=== PATIENT | female | born 1940 | race Caucasian/White ===

== ENCOUNTER 2024-11-15 13:48 | Emergency (ER) | payer MEDICARE, MEDICAID, SELFPAY ==
[2024-11-15 13:53] VITALS: BP 168/133; PULSE 84; RESP 16; TEMP 36.7; O2SAT 95; BMI 34.9
--- NOTE | 2024-11-15 13:53 | CTR_ITS ---
PROCEDURE INFORMATION: Exam: CT Pelvis Without Contrast, Skeleton Exam date and time: 11/15/2024 2:04 PM Age: 84 years old Clinical indication: Injury or trauma; Fall; Blunt trauma (contusions or hematomas); Bilateral; Pelvic region TECHNIQUE: Imaging protocol: Computed tomography of the pelvis without contrast. Exam focused on the skeleton. Radiation optimization: All CT scans at this facility use at least one of these dose optimization techniques: automated exposure control; mA and/or kV adjustment per patient size (includes targeted exams where dose is matched to clinical indication); or iterative reconstruction. COMPARISON: No relevant prior studies available. RADIATION DOSE METRICS: Total DLP (mGy-cm): 724.49 FINDINGS: Bones/joints: No acute fracture or dislocation. Cystic and sclerotic changes in both femoral heads, right slightly greater than left, are consistent with [id number] bilateral hip arthrosis. Normal sacroiliac joints. Degenerative changes in the spine. Moderate osteopenia. Soft tissues: Unremarkable. CT/CT pelvis [facility] [id number] IMPRESSION: No acute findings.
--- NOTE | 2024-11-15 13:53 | CTR_ITS ---
PROCEDURE INFORMATION: Exam: CT Head Without Contrast Exam date and time: 11/15/2024 2:01 PM Age: 84 years old Clinical indication: Injury or trauma; Fall; Blunt trauma (contusions or hematomas) TECHNIQUE: Imaging protocol: Computed tomography of the head without contrast. Radiation optimization: All CT scans at this facility use at least one of these dose optimization techniques: automated exposure control; mA and/or kV adjustment per patient size (includes targeted exams where dose is matched to clinical indication); or iterative reconstruction. COMPARISON: No relevant prior studies available. RADIATION DOSE METRICS: Total DLP (mGy-cm): 1066.98 FINDINGS: Brain: No intraparenchymal hemorrhage. No subdural or epidural hematoma or fluid collection. Confluent and scattered areas of decreased density are present within the periventricular and subcortical deep white matter. These changes are nonspecific and more in keeping with areas of chronic microvascular ischemic change. No evidence of a large territorial infarct. There is no large mass or mass effect. Cerebral ventricles: Mild prominence of the ventricular and sulcal pattern. There is prominence of the extra-axial CSF space. Findings more compatible with global volume loss. Paranasal sinuses: The visualized portion of the paranasal sinuses are clear. Mastoid air cells: The mastoid air cells are clear. Bones: The calvarium is intact. No depressed or displaced skull fracture. No suspicious bone lesion. Soft tissues: Overlying soft tissues appear unremarkable. Vasculature: Atherosclerotic plaque along the intracranial segment of the right and left internal carotid artery. CT/CT head wo con* [id number] IMPRESSION: No acute findings within the brain.
--- NOTE | 2024-11-15 13:56 | W.ED.FALL ---
HPI - Fall General: Chief Complaint: Fall Stated Complaint: buttock pain s/p fall Time Seen by Provider: 11/15/24 13:50 Source: patient Mode of arrival: ambulatory Limitations: no limitations History of Present Illness: 84-year-old female who [facility]. She had been in the shower and tripped and fell states she had landed on her butt she complains of some buttocks pain along with some low back pain. She denies any other pain to me she is really unsure if she hit her head no focal deficits here. Associated symptoms-after fall: Denies abdominal pain, chest pain, headache(s) or neck pain Related Data Home Medications ?Medication ?Instructions ?Recorded ?Confirmed acetaminophen 325 mg tablet 650 mg PO Q6H PRN pain/increased 11/15/24 11/15/24 temp amlodipine 5 mg tablet 5 mg PO DAILY 11/15/24 11/15/24 aspirin 81 mg tablet,delayed 81 mg PO QAM 11/15/24 11/15/24 release atorvastatin 10 mg tablet 10 mg PO QAM 11/15/24 11/15/24 bisacodyl 10 mg rectal suppository 10 mg [place] DAILY PRN Constipation 11/15/24 11/15/24 (Dulcolax (bisacodyl)) buspirone 15 mg tablet 15 mg PO TID 11/15/24 11/15/24 carbamazepine 200 mg tablet 200 mg PO BID 11/15/24 11/15/24 cetirizine 10 mg tablet 10 mg PO BEDTIME 11/15/24 11/15/24 citalopram 10 mg tablet 10 mg PO QAM 11/15/24 11/15/24 cyanocobalamin (vitamin B-12) 1,000 mcg PO QAM 11/15/24 11/15/24 1,000 mcg tablet docusate sodium 100 mg capsule 200 mg PO QAM 11/15/24 11/15/24 (Colace) fluticasone propionate 50 1 spray intranasal DAILY 11/15/24 11/15/24 mcg/actuation nasal spray,suspension guaifenesin 100 mg/5 mL oral liquid 200 mg PO Q6H PRN Cough 11/15/24 11/15/24 guaifenesin 600 mg tablet, 600 mg PO Q12H PRN Cough 11/15/24 11/15/24 extended release 12 hr (Mucinex) insulin glargine-yfgn 100 unit/mL 5 unit SUBCUT BEDTIME 11/15/24 11/15/24 (3 mL) subcutaneous pen ipratropium 0.5 mg-albuterol 3 mg 3 ml inhalation Q6H PRN Shortness 11/15/24 11/15/24 (2.5 mg base)/3 mL nebulization Of Breath Or Wheezing soln ketoconazole 1 % shampoo (Nizoral 1 applic topical ./Sun11/15/24 11/15/24 A-D) levothyroxine 50 mcg tablet 50 mcg PO QAM 11/15/24 11/15/24 melatonin 3 mg tablet 6 mg PO BEDTIME 11/15/24 11/15/24 menthol 4 % topical gel (Cooling 1 applic topical BID rt shoulder 11/15/24 11/15/24 Pain Relief) metformin 500 mg tablet 500 mg PO BID 11/15/24 11/15/24 [id number]-pvmzjczh-bpac 1 tab PO QAM 11/15/24 11/15/24 fumarate 19 mg-folic acid 400 mcg tablet (Thera-M) omeprazole 20 mg capsule,delayed 20 mg PO QAM 11/15/24 11/15/24 release Review of Systems Const: Denies: fever(s), chills, body aches or change in appetite Eyes: Denies: blurry vision or eye discomfort ENMT: Denies: throat pain or dental pain Card: Denies: chest pain Resp: Denies: dyspnea GI: Denies: abdominal pain, nausea, vomiting or diarrhea : Denies: dysuria Musc: Reports: extremity pain; Denies: neck pain or back pain Skin/Breast: Denies: rash Neuro: Denies: headache(s) Physical Exam Const: COMMON NORMALS: no acute distress, patient oriented x3 and healthy appearing HENMT: COMMON NORMALS: normocephalic and atraumatic HEAD & SCALP: normocephalic and atraumatic Eye: COMMON NORMALS: conjunctivae normal CONJUNCTIVA: Yes conjunctivae normal Neck/C-Spine: COMMON NORMALS: full ROM and supple Chest: COMMONS NORMALS: normal inspection of the chest Resp: COMMON NORMALS: normal respiratory effort, No retractions, No use of accessory muscles and clear to auscultation bilaterally AUSCULTATION: clear to auscultation bilaterally Cardio: COMMON NORMALS: regular rate, regular rhythm and No murmurs present (Cardio) RATE: regular rate RHYTHM: regular rhythm GI: COMMON NORMALS: Normal to inspection, nondistended, normoactive bowel sounds present, Soft to palpation, non-tender and no masses PALPATION: Yes Soft to palpation Back/Pelvis: OTHER: Tenderness over lumbar spine and tailbone Extremity: COMMON NORMALS: normal to inspection and full ROM Neuro: COMMON NORMALS: patient oriented x3, moves all extremities and no focal motor deficits MOTOR EXAM: 5/5 motor strength present throughout Psych: COMMON NORMALS: mental status grossly normal, Normal thought process present and cooperative THOUGHT PROCESS: Normal thought process present Skin: COMMON NORMALS: no rashes or lesions noted and no wounds GENERAL SKIN EXAM: no rashes or lesions noted Course Vital Signs: Vital signs: Vital Signs Temperature 98.1 F 11/15/24 13:53 Pulse Rate 84 11/15/24 13:53 Respiratory Rate 16 11/15/24 13:53 Blood Pressure 168/133 11/15/24 13:53 Pulse Oximetry 95 11/15/24 13:53 Oxygen Delivery Me thod Room Air 11/15/24 13:53 MDM - Fall Medical Decision Making [facility] a [facility] with a contusion of her bodyaches imaging here is normal she is well-appearing here stable for [facility] Medical Records I reviewed the patient's medical records. Lab Data Radiology Impressions Head CT 11/15/24 13:53 IMPRESSION: No acute findings within the brain. ADDENDUM: 11/15/24 [address] made to prior CT scan of the brain performed November 09, 2009 and May 24, 2009. 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 Findings are unchanged. Pelvis CT 11/15/24 13:53 IMPRESSION: No acute findings. All radiology interpretation(s) finalized by discharge Discharge Plan Discharge Patient Disposition: Home Clinical Impression: Contusion of buttock, Fall Condition: Stable Prescriptions: No Action cetirizine 10 mg tablet 10 mg PO BEDTIME atorvastatin 10 mg tablet 10 mg PO QAM citalopram 10 mg tablet 10 mg PO QAM cyanocobalamin (vitamin B-12) 1,000 mcg tablet 1,000 mcg PO QAM amlodipine 5 mg tablet 5 mg PO DAILY aspirin 81 mg tablet,delayed release (DR/EC) 81 mg PO QAM guaifenesin 100 mg/5 mL Liquid 200 mg PO Q6H PRN (Reason: Cough) carbamazepine 200 mg tablet 200 mg PO BID bisacodyl [Dulcolax (bisacodyl)] 10 mg Suppository 10 mg [place] DAILY PRN (Reason: Constipation) docusate sodium [Colace] 100 mg Capsule 200 mg PO QAM fluticasone propionate 50 mcg/actuation spray,suspension 1 spray INTRANASAL DAILY buspirone 15 mg tablet 15 mg PO TID Cooling Pain Relief 4 % gel 1 applic TOPICAL BID metformin 500 mg tablet 500 mg PO BID acetaminophen 325 mg Tablet 650 mg PO Q6H PRN (Reason: pain/increased temp) ipratropium-albuterol 0.5 mg-3 mg(2.5 mg base)/3 mL solution for nebulization 3 ml INHALATION Q6H PRN (Reason: Shortness Of Breath Or Wheezing) melatonin 3 mg tablet 6 mg PO BEDTIME levothyroxine 50 mcg tablet 50 mcg PO QAM omeprazole 20 mg capsule,delayed release(DR/EC) 20 mg PO QAM Nizoral A-D 1 % shampoo 1 applic TOPICAL .TUES/FRI guaifenesin [Mucinex] 600 mg Tablet Extended Release 12hr 600 mg PO Q12H PRN (Reason: Cough) Thera-M 19 mg iron- 400 mcg tablet 1 tab PO QAM insulin glargine-yfgn 100 unit/mL (3 mL) insulin pen 5 unit SUBCUT BEDTIME Discharge Orders: Discharge ED (Routine); Ordered 11/15/24 Ordered By: María Metcalf Referrals: Solitario Mancilla Jr, MD [Primary Care Provider, Family Practice] - 4-7 days Discharge Diet: Advance as tolerated Discharge Activity: Resume usual activity Patient Instructions: Contusion in Adults (ED) Print Language: Pakistani Coding Level of Care Code ED Automobile Carpets Molder for Catherine Leavitt
--- NOTE | 2024-11-15 15:58 | PC.PHAR ---
pt is from [facility]
[2024-11-15 16:36] VITALS: BP 96/63; PULSE 93; O2SAT 100
== END 2024-11-15 16:37 | disposition home or self-care (01) ==
PROVIDERS: Emergency Provider Emergency Medicine; PCP Family Medicine
DX: S30.0XXA Contusion of lower back and pelvis, initial encounter (principal); Z79.84 Long term (current) use of oral hypoglycemic drugs; Z79.4 Long term (current) use of insulin; Z79.82 Long term (current) use of aspirin; W18.2XXA Fall in (into) shower or empty bathtub, initial encounter
CPT/HCPCS: 70450; 72192; 99284

== ENCOUNTER 2024-11-30 10:58 | Emergency (ER) | payer MEDICARE, MEDICAID, SELFPAY ==
[2024-11-30 10:59] VITALS: BP 185/94; PULSE 69; RESP 16; TEMP 36.8; O2SAT 97; BMI 34.2
--- NOTE | 2024-11-30 11:01 | CTR_ITS ---
PROCEDURE INFORMATION: Exam: CT Head Without Contrast Exam date and time: 11/30/2024 11:28 AM Age: 84 years old Clinical indication: Injury or trauma; Fall; Blunt trauma (contusions or hematomas); Without loss of consciousness; Altered mental status/memory loss; Confusion or disorientation TECHNIQUE: Imaging protocol: Computed tomography of the head without contrast. Radiation optimization: All CT scans at this facility use at least one of these dose optimization techniques: automated exposure control; mA and/or kV adjustment per patient size (includes targeted exams where dose is matched to clinical indication); or iterative reconstruction. COMPARISON: CT head wo con* [id number] 11/15/2024 2:01 PM RADIATION DOSE METRICS: Total DLP (mGy-cm): 1113.2 FINDINGS: Brain: [id number] periventricular white matter hypoattenuation. Diffuse age-appropriate cortical atrophy. No acute intracranial hemorrhage. No acute territorial infarction. Cerebral ventricles: No ventriculomegaly. Paranasal sinuses: Visualized sinuses are unremarkable. No fluid levels. Mastoid air cells: Visualized mastoid air cells are well aerated. Bones: Unremarkable. No acute fracture. Soft tissues: Unremarkable. CT/CT head wo con* [id number] IMPRESSION: 1. No acute intracranial abnormality. 2. [id number] chronic ischemic small-vessel disease.
--- NOTE | 2024-11-30 11:01 | CTR_ITS ---
PROCEDURE INFORMATION: Exam: CT Cervical Spine Without Contrast Exam date and time: 11/30/2024 11:28 AM Age: 84 years old Clinical indication: Injury or trauma; Fall; Blunt trauma TECHNIQUE: Imaging protocol: Computed tomography of the cervical spine without contrast. Radiation optimization: All CT scans at this facility use at least one of these dose optimization techniques: automated exposure control; mA and/or kV adjustment per patient size (includes targeted exams where dose is matched to clinical indication); or iterative reconstruction. COMPARISON: CT head wo con* [id number] 11/15/2024 2:01 PM RADIATION DOSE METRICS: Total DLP (mGy-cm): 231.1 FINDINGS: Bones: Straightening of the normal cervical lordosis. The odontoid and ring of C1 are intact. No acute fracture. No dislocation. Mild multilevel degenerative disease of the cervical spine. Mild facet joint arthropathy and uncovertebral spurring without high-grade foraminal stenosis. No high-grade central canal stenosis. Disc osteophyte complex with mild effacement of the thecal sac at C3-C4. Lungs: Lung apices are normal. Soft tissues: Unremarkable. CT/CT cervical spin wo con* [id number] IMPRESSION: Mild multilevel degenerative disease of the cervical spine. No acute fracture or dislocation.
--- NOTE | 2024-11-30 11:03 | W.ED.HEATRA ---
HPI - Head Injury General: Chief complaint: Altered Mental Status Stated complaint: ams s/p fall Time Seen by Provider: 11/30/24 10:59 Source: patient and EMS Mode of arrival: EMS Limitations: altered mental status History of Present Illness: 84-year-old female is here from [facility] does have a history of dementia per EMS patient had fell and hit her head on the door last night [facility] states that since then she has been a little more confused than her typical here she is able to tell me her name and where she is from she is complains of a mild headache denies any other injuries from the fall Associated symptoms: Deny nausea, neck pain or vomiting Related Data Home Medications ?Medication ?Instructions ?Recorded ?Confirmed acetaminophen 325 mg tablet 650 mg PO Q6H PRN pain/increased 11/15/24 11/30/24 temp amlodipine 5 mg tablet 5 mg PO DAILY 11/15/24 11/30/24 aspirin 81 mg tablet,delayed 81 mg PO QAM 11/15/24 11/30/24 release atorvastatin 10 mg tablet 10 mg PO QAM 11/15/24 11/30/24 bisacodyl 10 mg rectal suppository 10 mg [place] DAILY PRN Constipation 11/15/24 11/30/24 (Dulcolax (bisacodyl)) carbamazepine 200 mg tablet 400 mg PO BID 11/15/24 11/30/24 cetirizine 10 mg tablet 10 mg PO BEDTIME 11/15/24 11/30/24 citalopram 10 mg tablet 10 mg PO QAM 11/15/24 11/30/24 cyanocobalamin (vitamin B-12) 1,000 mcg PO QAM 11/15/24 11/30/24 1,000 mcg tablet docusate sodium 100 mg capsule 200 mg PO QAM 11/15/24 11/30/24 (Colace) fluticasone propionate 50 1 spray intranasal DAILY 11/15/24 11/30/24 mcg/actuation nasal spray,suspension guaifenesin 100 mg/5 mL oral liquid 200 mg PO Q6H PRN Cough 11/15/24 11/30/24 guaifenesin 600 mg tablet, 600 mg PO Q12H PRN Cough 11/15/24 11/30/24 extended release 12 hr (Mucinex) insulin glargine-yfgn 100 unit/mL 5 unit SUBCUT BEDTIME 11/15/24 11/30/24 (3 mL) subcutaneous pen ipratropium 0.5 mg-albuterol 3 mg 3 ml inhalation Q6H PRN Shortness 11/15/24 11/30/24 (2.5 mg base)/3 mL nebulization Of Breath Or Wheezing soln ketoconazole 1 % shampoo (Nizoral 1 applic topical ./Sun11/15/24 11/30/24 A-D) levothyroxine 50 mcg tablet 50 mcg PO QAM 11/15/24 11/30/24 menthol 4 % topical gel (Cooling 1 applic topical BID rt shoulder 11/15/24 11/30/24 Pain Relief) metformin 500 mg tablet 250 mg PO BID 11/15/24 11/30/24 hcionkuvmpeo-odqgtxlc-opsu 1 tab PO QAM 11/15/24 11/30/24 fumarate 19 mg-folic acid 400 mcg tablet (Thera-M) omeprazole 20 mg capsule,delayed 20 mg PO QAM 11/15/24 11/30/24 release Allergies Allergy/AdvReac Type Severity Reaction Status Date / Time amitriptyline Allergy Unknown Verified 11/30/24 11:06 ampicillin Allergy Unknown Verified 11/30/24 11:06 methadone Allergy Unknown Verified 11/30/24 11:06 Phenothiazines Allergy Unknown Verified 11/30/24 11:06 Sulfa (Sulfonamide Allergy Unknown Verified 11/30/24 11:06 Antibiotics) trazodone Allergy Unknown Verified 11/30/24 11:06 Review of Systems Const: Denies: fever(s), chills, body aches or change in appetite ENMT: Denies: throat pain or dental pain Card: Denies: chest pain Resp: Denies: dyspnea GI: Denies: abdominal pain, nausea, vomiting or diarrhea Musc: Denies: neck pain or back pain Skin/Breast: Denies: rash Neuro: Reports: headache(s) Physical Exam Const: COMMON NORMALS: no acute distress, healthy appearing and alert ORIENTATION/CONSCIOUSNESS: Yes oriented to person HENMT: COMMON NORMALS: normocephalic and atraumatic HEAD & SCALP: normocephalic and atraumatic Eye: COMMON NORMALS: conjunctivae normal CONJUNCTIVA: Yes conjunctivae normal Neck/C-Spine: COMMON NORMALS: full ROM and supple Chest: COMMONS NORMALS: normal inspection of the chest Resp: COMMON NORMALS: normal respiratory effort, No retractions, No use of accessory muscles and clear to auscultation bilaterally AUSCULTATION: clear to auscultation bilaterally Cardio: COMMON NORMALS: regular rate, regular rhythm and No murmurs present (Cardio) RATE: regular rate RHYTHM: regular rhythm GI: COMMON NORMALS: Normal to inspection, nondistended, normoactive bowel sounds present, Soft to palpation, non-tender and no masses PALPATION: Yes Soft to palpation Extremity: COMMON NORMALS: normal to inspection and full ROM Neuro: COMMON NORMALS: moves all extremities and no focal motor deficits SENSORIUM/ORIENTATION: Yes alert and Yes oriented to person Psych: COMMON NORMALS: Normal thought process present and cooperative THOUGHT PROCESS: Normal thought process present Skin: COMMON NORMALS: no rashes or lesions noted and no wounds GENERAL SKIN EXAM: no rashes or lesions noted Course Vital Signs: Vital signs: Vital Signs Temperature 98.2 F 11/30/24 10:59 Pulse Rate 69 11/30/24 10:59 Respiratory Rate 16 11/30/24 10:59 Blood Pressure 185/94 11/30/24 10:59 Pulse Oximetry 97 11/30/24 10:59 Oxygen Delivery Me thod Room Air 11/30/24 10:59 MDM - Head Injury Medcial Decision Making Patient presents here with closed head injury her mentation here has been at her baseline family came and states she is acting herself as well. No signs infection she stable for discharge back to [facility]. Medical Records I reviewed the patient's medical records. Lab Data I reviewed the patient's lab results. 11/30/24 11:08 11/30/24 11:08 Radiology Impressions Cervical Spine CT 11/30/24 11:01 IMPRESSION: Mild multilevel degenerative disease of the cervical spine. No acute fracture or dislocation. Head CT 11/30/24 11:01 IMPRESSION: 1. No acute intracranial abnormality. 2. [id number] chronic ischemic small-vessel disease. Laboratory Results WBC 5.26 10^3/uL (3.29-11.43) 11/30/24 11:08 RBC 5.16 10^6/uL (3.85-5.65) 11/30/24 11:08 Hgb 14.50 g/dL (11.27-16.99) 11/30/24 11:08 Hct 44.2 % (36-47) 11/30/24 11:08 MCV 85.7 fl (85-98) 11/30/24 11:08 MCH 28.1 pg (27-33) 11/30/24 11:08 MCHC 32.8 g/dL (30-55) 11/30/24 11:08 RDW 11.9 % (12.1-15.1) L 11/30/24 11:08 Plt Count 249 10^3/cmm (157-399) 11/30/24 11:08 MPV 8.8 fL (7.4-10.4) 11/30/24 11:08 Neut % (Auto) 55.3 % 11/30/24 11:08 Lymph % (Auto) 30.4 % 11/30/24 11:08 [place] % (Auto) 11.6 % 11/30/24 11:08 Eos % (Auto) 2.1 % 11/30/24 11:08 Baso % (Auto) 0.4 % 11/30/24 11:08 Neut # (Auto) 2.91 10^3/uL (1.8-7.7) 11/30/24 11:08 Lymph # (Auto) 1.6 10^3/uL (0.8-4.8) 11/30/24 11:08 [place] # (Auto) 0.6 10^3/uL (0.2-0.9) 11/30/24 11:08 Eos # (Auto) 0.1 10^3/uL (0.0-0.8) 11/30/24 11:08 Baso # (Auto) 0.0 10^3/uL (0.0-0.1) 11/30/24 11:08 Nucleated RBC % (auto) 0 % 11/30/24 11:08 Nucleated RBCs # 0.0 /100WBC 11/30/24 11:08 Sodium 131 mmol/L (136-145) L 11/30/24 11:08 Potassium 3.8 mmol/L (3.5-5.1) 11/30/24 11:08 Chloride 92 mmol/L (98-107) L 11/30/24 11:08 Carbon Dioxide 32 mmol/L (22-29) H 11/30/24 11:08 Anion Gap 10.8 (5-19) 11/30/24 11:08 BUN 8 mg/dL (8-23) 11/30/24 11:08 Creatinine 0.5 mg/dL (0.5-0.9) 11/30/24 11:08 GFR Calculation Not Reportable 11/30/24 11:08 Glucose 102 mg/dL (65-115) 11/30/24 11:08 Calculated Osmolality 271 mOsm/kg (285-295) L 11/30/24 11:08 Calcium 8.8 mg/dL (8.5-10.5) 11/30/24 11:08 Total Bilirubin 0.3 mg/dL (0.15-1.2) 11/30/24 11:08 AST 14 U/L (0-32) 11/30/24 11:08 ALT 9 U/L (0-33) 11/30/24 11:08 Alkaline Phosphatase 132 U/L (35-105) H 11/30/24 11:08 Total Protein 6.9 g/dL (6.6-8.7) 11/30/24 11:08 Albumin 3.7 g/dL (3.5-5.2) 11/30/24 11:08 Globulin 3.2 g/dL (1.3-4.6) 11/30/24 11:08 Urine Color Yellow (Yellow) 11/30/24 11:11 Urine Appearance Cloudy (CLEAR) A 11/30/24 11:11 Urine pH 8.0 (5-7) A 11/30/24 11:11 Ur Specific [place] 1.010 (1.005-1.030) 11/30/24 11:11 Urine Protein Negative (Negative) 11/30/24 11:11 Urine Glucose (UA) Negative (Normal) 11/30/24 11:11 Urine Ketones Negative (Negative) 11/30/24 11:11 Urine Blood Negative (Negative) 11/30/24 11:11 Urine Nitrate Negative (Negative) 11/30/24 11:11 Urine Bilirubin Negative (Negative) 11/30/24 11:11 Urine Urobilinogen 0.2 mg/dL (Negative) 11/30/24 11:11 Ur Leukocyte Esterase Trace (Negative) A 11/30/24 11:11 Urine RBC 0-2 /hpf (0-2) 11/30/24 11:11 Urine WBC 11-20 /hpf (0-5) H 11/30/24 11:11 Ur Squamous Epith Cells 0-5 /hpf (0-5) 11/30/24 11:11 Amorphous Sediment Not Reportable 11/30/24 11:11 Urine Bacteria 4+ /hpf (NONE) H 11/30/24 11:11 Hyaline Casts 0.40 /lpf 11/30/24 11:11 All radiology interpretation(s) finalized by discharge Discharge Plan Discharge Patient Disposition: Home Clinical Impression: Closed head injury Condition: Stable Prescriptions: No Action cetirizine 10 mg tablet 10 mg PO BEDTIME atorvastatin 10 mg tablet 10 mg PO QAM citalopram 10 mg tablet 10 mg PO QAM cyanocobalamin (vitamin B-12) 1,000 mcg tablet 1,000 mcg PO QAM amlodipine 5 mg tablet 5 mg PO DAILY aspirin 81 mg tablet,delayed release (DR/EC) 81 mg PO QAM guaifenesin 100 mg/5 mL Liquid 200 mg PO Q6H PRN (Reason: Cough) carbamazepine 200 mg tablet 400 mg PO BID bisacodyl [Dulcolax (bisacodyl)] 10 mg Suppository 10 mg [place] DAILY PRN (Reason: Constipation) docusate sodium [Colace] 100 mg Capsule 200 mg PO QAM fluticasone propionate 50 mcg/actuation spray,suspension 1 spray INTRANASAL DAILY Cooling Pain Relief 4 % gel 1 applic TOPICAL BID metformin 500 mg tablet 250 mg PO BID acetaminophen 325 mg Tablet 650 mg PO Q6H PRN (Reason: pain/increased temp) ipratropium-albuterol 0.5 mg-3 mg(2.5 mg base)/3 mL solution for nebulization 3 ml INHALATION Q6H PRN (Reason: Shortness Of Breath Or Wheezing) levothyroxine 50 mcg tablet 50 mcg PO QAM omeprazole 20 mg capsule,delayed release(DR/EC) 20 mg PO QAM Nizoral A-D 1 % shampoo 1 applic TOPICAL .TUES/FRI guaifenesin [Mucinex] 600 mg Tablet Extended Release 12hr 600 mg PO Q12H PRN (Reason: Cough) Thera-M 19 mg iron- 400 mcg tablet 1 tab PO QAM insulin glargine-yfgn 100 unit/mL (3 mL) insulin pen 5 unit SUBCUT BEDTIME Discharge Orders: Discharge ED (Routine); Ordered 11/30/24 Ordered By: María Metcalf Referrals: Solitario Mancilla Jr, MD [Staff Physician, [facility]] Discharge Diet: Advance as tolerated Discharge Activity: Resume usual activity Patient Instructions: Head Injury (ED) Print Language: Portuguese Coding Level of Care Code ED Assisted Living Care Manager for Catherine Leavitt
[2024-11-30 11:15] LABS: Hematocrit 44.2 % (36-47); Hemoglobin 14.50 g/dL (11.27-16.99); Mean Corpuscular HGB Conc 32.8 g/dL (30-55); Mean Corpuscular Hemoglobin 28.1 pg (27-33); Mean Corpuscular Volume 85.7 fl (85-98); Nucleated Red Blood Cells % 0 %; Platelet Count 249 10^3/cmm (157-399); Red Blood Count 5.16 10^6/uL (3.85-5.65); White Blood Count 5.26 10^3/uL (3.29-11.43)
[2024-11-30 11:21] LABS: Glucose Urine UA Negative (Normal); Nitrate Urine Negative (Negative); Specific Gravity, Urine 1.010 (1.005-1.030)
[2024-11-30 11:26] LABS: Add Urine Microscopic? YES
[2024-11-30 11:33] LABS: Alanine Aminotransferase 9 U/L (0-33); Albumin Level 3.7 g/dL (3.5-5.2); Alkaline Phosphatase 132 U/L (35-105); Anion Gap 10.8 (5-19); Aspartate Amino Transferase 14 U/L (0-32); Blood Urea Nitrogen 8 mg/dL (8-23); Calcium 8.8 mg/dL (8.5-10.5); Carbon Dioxide 32 mmol/L (22-29); Chloride 92 mmol/L (98-107); Creatinine Clr Calc Pharmacy 61.2621; Globulin 3.2 g/dL (1.3-4.6); Glucose 102 mg/dL (65-115); Osmolality Calculated 271 mOsm/kg (285-295); Potassium 3.8 mmol/L (3.5-5.1); Sodium 131 mmol/L (136-145); Total Protein 6.9 g/dL (6.6-8.7)
[2024-11-30 12:52] VITALS: BP 163/91; PULSE 61; O2SAT 99
== END 2024-11-30 12:56 | disposition home or self-care (01) ==
PROVIDERS: Emergency Provider Emergency Medicine; PCP Internal Medicine
DX: S09.90XA Unspecified injury of head, initial encounter (principal); R41.82 Altered mental status, unspecified; F03.90 Unspecified dementia, unspecified severity, without behavioral disturbance, psychotic disturbance, mood disturbance, and anxiety; Z79.899 Other long term (current) drug therapy; Z79.82 Long term (current) use of aspirin; Z79.84 Long term (current) use of oral hypoglycemic drugs; Z79.4 Long term (current) use of insulin; Z79.890 Hormone replacement therapy; Z88.2 Allergy status to sulfonamides; Z88.8 Allergy status to other drugs, medicaments and biological substances; W19.XXXA Unspecified fall, initial encounter
CPT/HCPCS: 70450; 72125; 80053; 81001; 85025; 99284